=== PATIENT | male | born 1960 | race Caucasian/White ===

== ENCOUNTER 2017-05-15 17:23 | Inpatient (IN) | payer OTHER ==
[2017-05-15] VITALS (8 sets, daily range): BP systolic 139–170; BP diastolic 66–82; PULSE 80–104; RESP 16–20; TEMP 96.2–98.3; O2SAT 99–100
[~2017-05-15] VITALS: Ht 182.9 cm; Wt 132.0 kg
[2017-05-15] MEDS ORDERED: LISI10TA PO (17:53)
[2017-05-15] MEDS ORDERED: ASPI81CH37 CHEW (17:53)
[2017-05-15] MEDS ORDERED: SODIUM CHLOR 0.9% 1000 ML INJ 1,000 ML IV ONE (17:55)
--- NOTE | 2017-05-15 18:11 | RADRPT ---
EXAM DATE/TIME: 05/15/2017 18:01 [facility] COMPARISON: No previous studies available for comparison. INDICATIONS : Stroke alert, right sided facial numbness. RADIATION DOSE: 69.15 CTDIvol (mGy) This report was called by Dr. Ridley to Dr. Boucher at 6: 08 PM MEDICAL HISTORY : Hypertension. SURGICAL HISTORY : Cholecystectomy. ENCOUNTER: Initial ACUITY: 1 day PAIN SCALE: 0/10 LOCATION: Bilateral head TECHNIQUE: Multiple contiguous axial images were obtained of the head. Using automated exposure control and adj ustment of the mA and/or kV according to patient size, radiation dose was kept as low as reasonably a chievable to obtain optimal diagnostic quality images. DICOM format image data is available electro nically for review and comparison. FINDINGS: CEREBRUM: The ventricles are normal for age. No evidence of midline shift, mass lesion, hemorrhage or acute in farction. No extra-axial fluid collections are seen. POSTERIOR FOSSA: The cerebellum and brainstem are intact. The 4th ventricle is midline. The cerebellopontine angle i s unremarkable. EXTRACRANIAL: The visualized portion of the orbits is intact. SKULL: The calvaria is intact. No evidence of skull fracture. CONCLUSION: Normal examination. Jordan Ridley MD on May 15, 2017 at 18:07 Board Certified Radiologist. This report was verified electronically.
[2017-05-15 18:13] LABS: AUTOMATED NEUTROPHIL # 6.1 TH/MM3 (1.8-7.7); BASOPHIL # 0.1 TH/MM3 (0-0.2); BASOPHIL % 1.1 % (0.0-2.0); EOSINOPHIL # 0.2 TH/MM3 (0-0.4); EOSINOPHIL % 2.1 % (0.0-4.0); HEMATOCRIT 37.3 % (39.0-51.0); HEMO FLAGS DIFF FINAL; LYMPH % 23.7 % (9.0-44.0); LYMPHOCYTE # 2.2 TH/MM3 (1.0-4.8); MEAN CELL VOLUME 76.2 FL (80.0-100.0); MEAN CORPUSCULAR HEMOGLOBIN 24.4 PG (27.0-34.0); MONO % 8.9 % (0.0-8.0); NEUT % 64.2 % (16.0-70.0); PLATELET COUNT 378 TH/MM3 (150-450); RED BLOOD COUNT 4.89 MIL/MM3 (4.50-5.90); RED CELL DISTRIBUTION WIDTH 15.7 % (11.6-17.2); WHITE BLOOD COUNT 9.4 TH/MM3 (4.0-11.0)
[2017-05-15] MEDS ORDERED: IOHEXOL 350 MG/ML 10 ML VIAL (for RAD DIAG) IV ONE (18:18)
--- NOTE | 2017-05-15 18:18 | PD ---
HPI Chief Complaint: Neuro Symptoms/ Deficits Time Seen by Provider: 17:55 Travel History International Travel<30 days: No Contact w/Intl Traveler<30days: No Traveled to known affect area: No History of Present Illness HPI The patient is 56 years old and arrives due to right-sided facial numbness and weakness. Symptoms started suddenly at rest 2 hours and 56 minutes prior to ER triage. Onset sudden and his symptoms gradually progressed in a constant fashion precipitating his ER arrival by private auto. He denies any change in mentation or memory. He denies weakness in the extremities. 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 He denies any rash recently. He has had no headache. No new medication change in medication. Severity moderate. PFSH Past Medical History Hypertension: Yes Tetanus Vaccination: < 5 Years Influenza Vaccination: Yes ?: Not Past Surgical History Cholecystectomy: Yes Tonsillectomy: Yes Social History Alcohol Use: Yes Tobacco Use: No Substance Use: No Allergies-Medications (Allergen,Severity, Reaction): Coded Allergies: No Known Allergies (Unverified , 05/15/17) Reported Meds & Prescriptions Reported Meds & Active Scripts Active Reported Aspirin Low Dose (Aspirin) 81 Mg Chew 81 Mg CHEW DAILY Lisinopril-Hctz 10-12.5 Mg Tab 1 Tab PO DAILY Review of Systems Except as stated in HPI: all other systems reviewed are Neg Physical Exam Narrative GENERAL: 36-year-old male well-nourished well-developed no acute distress. SKIN: Focused skin assessment warm/dry. HEAD: Atraumatic. Normocephalic. EYES: Pupils equal and round. No scleral icterus. No injection or drainage. ENT: No nasal bleeding or discharge. Mucous membranes pink and moist. NECK: Trachea midline. No JVD. CARDIOVASCULAR: Regular rate and rhythm. No murmur appreciated. RESPIRATORY: No accessory muscle use. Clear to auscultation. Breath sounds equal bilaterally. GASTROINTESTINAL: Abdomen soft, non-tender, nondistended. Hepatic and splenic margins not palpable. MUSCULOSKELETAL: No obvious deformities. No clubbing. No cyanosis. No edema. NEUROLOGICAL: Awake and alert 3. Motor function of the upper or lower extremities is equal and symmetric 5 over 5. Cerebellar function is normal. Speech memory mentation normal. The patient's right eyebrow is slightly lower than the left eyebrow when both are maximally elevated. During conversation the patient does not completely close the right eye while blinking although close the left eye completely. He can forcefully close the right eye completely. There is a mild depression of the nasolabial fold on the right side and he cannot raise the right mouth while smiling. PSYCHIATRIC: Appropriate mood and affect; insight and judgment normal. Data Data Last Documented VS Vital Signs Date Time Temp Pulse Resp B/P Pulse Ox O2 Delivery O2 Flow Rate FiO2 05/15/17 18:36 104 18 157/80 100 Room Air 05/15/17 17:25 98.3 Vital signs reviewed Orders Diet Npo (05/15/17 Dinner) Activity Bed Rest (05/15/17 ) Electrocardiogram (05/15/17 ) I-Stat Creatinine (05/15/17 17:55) I-Stat Profile (05/15/17 17:55) Prothrombin Time / Inr (Pt) (05/15/17 17:55) Act Partial Throm Time (Ptt) (05/15/17 17:55) Complete Blood Count With Diff (05/15/17 17:55) Fibrinogen (05/15/17 17:55) Creatine Kinase (Cpk) (05/15/17 17:55) Troponin I (05/15/17 17:55) Ua Includes Microscopic (05/15/17 17:55) Drug Screen, Random Urine (05/15/17 17:55) Type And Screen (05/15/17 17:55) Ct Brain W/O Iv Contrast(Rout) (05/15/17 ) Cta Brain W Iv Contrast W 3d (05/15/17 17:55) Cta Neck W Iv Contrast W 3d (05/15/17 17:55) Consult Neurology (05/15/17 ) Blood Glucose (05/15/17 17:55) Ecg Monitoring (05/15/17 17:55) Neuro Checks Q2HX12,Q4H (05/15/17 17:55) Nursing Bedside Swallow Assess .ONCE (05/15/17 17:55) Iv Access Insert/Monitor (05/15/17 17:55) NPO (05/15/17 17:55) Oximetry (05/15/17 17:55) Oxygen Administration (05/15/17 17:55) Sodium Chlor 0.9% 1000 Ml Inj (Ns 1000 M (05/15/17 17:55) Resp Oxygen Tobias C Titrat 1-4 L (05/15/17 17:55) Cath For Specimen (05/15/17 17:55) (Hub Use Only)Inp Phy Cons/Ref (05/15/17 ) Iohexol 350 Inj (Omnipaque 350 Inj) (05/15/17 18:18) Admit Order (Ed Use Only) (05/15/17 18:45) Labs Laboratory Tests Test 05/15/17 18:00 White Blood Count 9.4 TH/MM3 Red Blood Count 4.89 MIL/MM3 Hemoglobin 11.9 GM/DL Bedside Hemoglobin 12.9 G/DL Hematocrit 37.3 % Bedside Hematocrit 38.0 % Mean Corpuscular Volume 76.2 FL Mean Corpuscular Hemoglobin 24.4 PG Mean Corpuscular Hemoglobin 32.0 % Concent Red Cell Distribution Width 15.7 % Platelet Count 378 TH/MM3 Mean Platelet Volume 7.6 FL Neutrophils (%) (Auto) 64.2 % Lymphocytes (%) (Auto) 23.7 % Monocytes (%) (Auto) 8.9 % Eosinophils (%) (Auto) 2.1 % Basophils (%) (Auto) 1.1 % Neutrophils # (Auto) 6.1 TH/MM3 Lymphocytes # (Auto) 2.2 TH/MM3 Monocytes # (Auto) 0.8 TH/MM3 Eosinophils # (Auto) 0.2 TH/MM3 Basophils # (Auto) 0.1 TH/MM3 CBC Comment DIFF FINAL Differential Comment Prothrombin Time 11.0 SEC Prothromb Time International 1.0 RATIO Ratio Activated Partial 29.9 SEC Thromboplast Time Fibrinogen 445 mg/dL Bedside Sodium 141 MMOL/L Bedside Potassium 4.1 MMOL/L Bedside Chloride 104 MMOL/L Bedside Blood Urea Nitrogen 8 MG/DL Bedside Creatinine 0.8 MG/DL Bedside Glucose 88 MG/DL Total Creatine Kinase 168 U/L Troponin I LESS THAN 0.02 NG/ML Blood Type O POSITIVE Antibody Screen NEGATIVE Blood Bank Comment [facility] Medical Screen Exam Complete: Yes Emergency Medical Condition: Yes Differential Diagnosis CVA, TIA, Catalan's Palsy Narrative Course CBC & BMP Diagram 05/15/17 18:00 [id number] electrolytes are normal The troponin is less than 0.02 Last 24 hours Impressions Head CTA 05/15/17 [id number] Signed Impressions: Service Date/Time: Monday, May 15, 2017 18:03 - CONCLUSION: No acute disease. Corbin Patino MD Head CT 05/15/17 0000 Signed Impressions: Service Date/Time: Monday, May 15, 2017 18:01 - CONCLUSION: Normal examination. Jordan Ridley MD The patient will be admitted for monitoring neurology evaluation and MR imaging. Stroke v Catalan's palsy. Pt very well informed and after long discussion he elected to defer Alteplase. We reviewed risks, benefits and alternatives in fairly specific detail and patient was provided with the [facility] patient information literature which we reviewed together with . d/w Dr Payne and Dr Lucia. Critical Care Narrative Aggregate critical care time was 40 minutes. Time to perform other separately billable procedures was not included in the critical care time. My time did not include minutes spent treating any other patients simultaneously or on activities that did not directly contribute to the patient's treatment. The services I provided to this patient were to treat and/or prevent clinically significant deterioration that could result in: Permanent neurologic deficit I provided critical care services requiring my management, as noted below: Chart data review, documentation time, medication orders and management, vital sign assessments/reviewing monitor data, ordering and reviewing lab tests, ordering and interpreting/reviewing x-rays and diagnostic studies, care of the patient and discussion of the patient with the admitting physicians. Critical care Stroke Alert NIHSS NIH Stroke Scale Result: 4 NIHSS Time Completed: 17:52 Thrombolytic Contraindications Contraindications: Refusal of Treatment Contraindications Comment: Long discussion with patient and patient ultimately refused Diagnosis Diagnosis: Primary Impression: Paralysis of the face Admitting Physician Requests: Observation Piter Boucher MD May 15, 2017 18:18
[2017-05-15 18:24] LABS: APTT (PATIENT) 29.9 SEC (24.3-30.1)
--- NOTE | 2017-05-15 18:28 | RADRPT ---
EXAM DATE/TIME: 05/15/2017 18:03 [facility] COMPARISON: CT BRAIN W/O CONTRAST, May 15, 2017, 18:01. INDICATIONS : Stroke alert, right sided facial numbness. IV CONTRAST: 99 cc Omnipaque 350 (iohexol) IV ; Cumulative dose for multiple exams. RADIATION DOSE: 16.82 CTDIvol (mGy) ; Combined studies MEDICAL HISTORY : Hypertension. SURGICAL HISTORY : Cholecystectomy. ENCOUNTER: Initial ACUITY: 1 day PAIN SCALE: 0/10 LOCATION: Bilateral head TECHNIQUE: Volumetric scanning was performed using a multi-row detector CT scanner. The data was post processed with a variety of visualization algorithms including full volume maximum intensity projection, multi -planar sliding thin slab reformation, curved planar reformation, and surface rendering techniques. Using automated exposure control and adjustment of the mA and/or kV according to patient size, radiat ion dose was kept as low as reasonably achievable to obtain optimal diagnostic quality images. DICO M format image data is available electronically for review and comparison. FINDINGS: There is excellent visualization of the major intracranial arteries out to the second-order branch ve ssels. There is no evidence for aneurysm, vessel truncation or stenosis, and no evidence for vascula r malformation. CONCLUSION: No acute disease. Corbin Patino MD on May 15, 2017 at 18:24 Board Certified Radiologist. This report was verified electronically.
[2017-05-15 18:32] LABS: I-STAT POTASSIUM 4.1 MMOL/L (3.5-4.9); I-STAT SODIUM 141 MMOL/L (138-146)
[2017-05-15 18:56] LABS: CREATINE KINASE 168 U/L (39-308)
--- NOTE | 2017-05-15 19:02 | RADRPT ---
EXAM DATE/TIME: 05/15/2017 18:03 [facility] COMPARISON: No previous studies available for comparison. INDICATIONS : Stroke alert, right sided facial numbness. IV CONTRAST: 99 cc Omnipaque 350 (iohexol) IV ; Cumulative dose for multiple exams. RADIATION DOSE: 16.82 CTDIvol (mGy) ; Combined studies MEDICAL HISTORY : Hypertension. SURGICAL HISTORY : Cholecystectomy. ENCOUNTER: Initial ACUITY: 1 day PAIN SCALE: 0/10 LOCATION: Bilateral neck Elevated flow velocities and ICA/CCA ratios have been found to correlate with increased degrees of vessel stenosis, calculated as percentage of diameter relative to a normal segment of distal ICA/CCA. TECHNIQUE: Volumetric scanning was performed using a multirow detector CT scanner. The data was post processed with a variety of visualization algorithms including full-volume maximum intensity projection, multip lanar sliding thin-slab reformation, curved-planar reformation, and surface-rendering techniques. Us ing automated exposure control and adjustment of the mA and/or kV according to patient size, radiatio n dose was kept as low as reasonably achievable to obtain optimal diagnostic quality images. DICOM f ormat image data is available electronically for review and comparison. FINDINGS: AORTIC ARCH: There is a three-vessel origin of the great vessels from the aorta. No evidence of ostial narrowing. RIGHT CAROTID: The common carotid artery is intact. The carotid bulb has a normal configuration without ulceration o r narrowing. The internal carotid artery lumen is smooth without stenosis. The external carotid wally ry is intact. LEFT CAROTID: The common carotid artery is intact. The carotid bulb has a normal configuration without ulceration or narrowing. The internal carotid artery lumen is smooth without stenosis. The external carotid ar lyndsey is intact. VERTEBRALS: The vertebral arteries have a symmetric diameter. No stenotic lesions are seen. CONCLUSION: No acute disease. Corbin Patino MD on May 15, 2017 at 18:56 Board Certified Radiologist. This report was verified electronically.
[2017-05-15 19:53] LABS: AMPHETAMINE, URINE NEG (NEG); BARBITURATES, URINE NEG (NEG); COCAINE, URINE NEG (NEG)
[2017-05-15 20:01] LABS: BLOOD, URINE NEG (NEG); GLUCOSE,URINE NEG (NEG); KETONE, URINE NEG (NEG); NITRITE,URINE NEG (NEG); URINE COLOR COLORLESS (YELLW/STRAW)
--- NOTE | 2017-05-15 20:02 | HHI.HP ---
[facility] Jama Richardson MD Admission Diagnosis R Facial Paralysis Diagnoses: (1) CVA (cerebral vascular accident) Diagnosis: Principal (2) HTN (hypertension) Diagnosis: Principal (3) Anemia Diagnosis: Principal Travel History International Travel<30 Days: No Contact w/Intl Traveler <30 Da: No Traveled to Known Affected Are: No History of Present Illness This is a 56-year-old male with a PMH of HTN who presented to the ER with right- sided facial droop starting earlier this afternoon. Per patient he started to "feel weird" while having lunch, w/ right-sided facial numbness. States he had sudden onset of right eye burning and difficulty closing his right eye. No complaints on the left. No weakness or motor dysfunction noted. Denies recent h/o viral infection in the last 1-2 months. No h/o Catalan's Palsy. On arrival, BP 170/82, HR 87, O2 sat 99% on RA, Afebrile. CBC unremarkable except for mild anemia, hemoglobin 11.9. Chemistry unremarkable. Troponin negative. INR 1.0. UA negative. Urine Drug Screen negative. CT Head with no acute findings. CTA Head/Neck negative. Dr. Lucia consulted by ER physician, recommendation for TPA however pt and declined. Symptoms persistent. now notes slurring of speech. Pt does report taking ASA daily. Review of Systems Except as stated in HPI: all other systems reviewed are Neg ROS: 14 point review of systems otherwise negative. Past Family Social History Past Medical History PMH: HTN Allergies: Coded Allergies: No Known Allergies (Unverified , 05/15/17) Family History PAST FAMILY HISTORY: Reviewed. No h/o DM or CAD Social History PAST SOCIAL HISTORY: Occasional alcohol. Negative for tobacco or drugs. Physical Exam Vital Signs Vital Signs Date Time Temp Pulse Resp B/P Pulse Ox O2 Delivery O2 Flow Rate FiO2 05/15/17 18:36 104 18 157/80 100 Room Air 05/15/17 18:09 99 Room Air 05/15/17 18:09 99 Room Air 05/15/17 18:06 84 20 143/72 99 Room Air 05/15/17 17:44 78 18 99 Room Air 05/15/17 17:40 80 20 141/77 99 05/15/17 17:25 98.3 87 16 170/82 99 Physical Exam PE: GENERAL: Middle-aged white male in no acute distress. at bedside. HEENT: PERRLA, EOMI. No scleral icterus or conjunctival pallor. Right-sided facial droop CARDIOVASCULAR: Regular rate and rhythm. No obvious murmurs to auscultation. No chest tenderness to palpation. RESPIRATORY: No obvious rhonchi or wheezing. Clear to auscultation. Breath sounds equal bilaterally. GASTROINTESTINAL: Abdomen soft, non-tender, nondistended. BS normal. MUSCULOSKELETAL: Extremities without clubbing, cyanosis, or edema. No obvious deformities. NEUROLOGICAL: Awake, alert and oriented x4. Right facial droop, unable to close right eye. Moving both upper and lower extremities spontaneously. Laboratory Laboratory Tests Test 05/15/17 05/15/17 18:00 18:50 White Blood Count 9.4 Red Blood Count 4.89 Hemoglobin 11.9 Bedside Hemoglobin 12.9 Hematocrit 37.3 Bedside Hematocrit 38.0 Mean Corpuscular Volume 76.2 Mean Corpuscular Hemoglobin 24.4 Mean Corpuscular Hemoglobin 32.0 Concent Red Cell Distribution Width 15.7 Platelet Count 378 Mean Platelet Volume 7.6 Neutrophils (%) (Auto) 64.2 Lymphocytes (%) (Auto) 23.7 Monocytes (%) (Auto) 8.9 Eosinophils (%) (Auto) 2.1 Basophils (%) (Auto) 1.1 Neutrophils # (Auto) 6.1 Lymphocytes # (Auto) 2.2 Monocytes # (Auto) 0.8 Eosinophils # (Auto) 0.2 Basophils # (Auto) 0.1 CBC Comment DIFF FINAL Differential Comment Prothrombin Time 11.0 Prothromb Time International 1.0 Ratio Activated Partial 29.9 Thromboplast Time Fibrinogen 445 Bedside Sodium 141 Bedside Potassium 4.1 Bedside Chloride 104 Bedside Blood Urea Nitrogen 8 Bedside Creatinine 0.8 Bedside Glucose 88 Total Creatine Kinase 168 Troponin I LESS THAN 0.02 Blood Type O POSITIVE Antibody Screen NEGATIVE Blood Bank Comment Urine Opiates Screen NEG Urine Barbiturates Screen NEG Urine Amphetamines Screen NEG Urine Benzodiazepines Screen NEG Urine Cocaine Screen NEG Urine Cannabinoids Screen NEG Result Diagram: 05/15/17 1800 Assessment and Plan Problem List: (1) CVA (cerebral vascular accident) ICD Code: I63.9 Status: Acute (2) HTN (hypertension) ICD Code: I10 Status: Acute (3) Anemia ICD Code: D64.9 Status: Acute Assessment and Plan A/P: 1. CVA: Acute onset of right-sided facial droop, now w/ mild slurred speech, no recent viral infection, no facial trauma/injury, concern for CVA. CT Head w / no acute findings, CTA Head/Neck negative, images reviewed by me. Dr. Lucia consulted by ER physician, recommendation for TPA however pt and declined. Will continue w/ ASA, check Hgb A1c, Lipid Profile. NPO, IVF, Speech Eval. HOB flat, permissive HTN, neuro checks. 2. HTN: BP170's on arrival, currently 140's systolic. Hold BP meds to allow for permissive HTN in light of possible CVA. 3. Anemia: Mild. Hgb 11.9, no previous labs for comparison. Will monitor, repeat labs in am. 4. DVT Prophylaxis: SCD/Teds. 5. Social work for d/c planning as needed. 6. Case discussed w/ ER physician at length Physician Certification 2 Midnight Certification Type: Admission for Inpatient Services Order for Inpatient Services The services are ordered in accordance with Medicare regulations or non- Medicare payer requirements, as applicable. In the case of services not specified as inpatient-only, they are appropriately provided as inpatient services in accordance with the 2-midnight benchmark. Estimated LOS (days): 2 days is the estimated time the patient will need to remain in the hospital, assuming treatment plan goals are met and no additional complications. Post-Hospital Plan: Not yet determined Niyah Rueda MD May 15, 2017 20:02
[2017-05-15] MEDS ORDERED: SODIUM CHLORIDE 0.9% FLUSH 10 ML FLUSH IV FLUSH PRN (20:15)
[2017-05-15] MEDS ORDERED: BISACODYL 10 MG SUPP RECTAL PRN (20:15)
[2017-05-15] MEDS ORDERED: SENNOSIDES 8.6 MG TAB PO PRN (20:15)
[2017-05-15] MEDS ORDERED: ONDANSETRON HCL 4 MG/2 ML VIAL IVP PRN (20:15)
[2017-05-15] MEDS ORDERED: GLUCAGON 1 MG/ML VIAL OTHER PRN (20:15)
[2017-05-15] MEDS ORDERED: LACTULOSE SYRUP 20 GM/30 ML CUP PO PRN (20:15)
[2017-05-15] MEDS ORDERED: MAGNESIUM HYDROXIDE SUSP 30 ML CUP PO PRN (20:15)
[2017-05-15] MEDS ORDERED: ENALAPRILAT 1.25 MG/ML VIAL IV PRN (20:15)
[2017-05-15] MEDS ORDERED: DEXTROSE 50% IN WATER 50 ML VIAL(D50) IV PUSH PRN (20:15)
[2017-05-15] MEDS ORDERED: MORPHINE SULFATE 4 MG/ML INJ IV PRN ×2 (20:15)
[2017-05-15] MEDS ORDERED: SODIUM CHLORIDE 0.9% FLUSH 5 ML FLUSH IV FLUSH PRN (20:15)
[2017-05-15] MEDS ORDERED: ACETAMINOPHEN 1000 MG/100 ML VIAL IV PRN (20:15)
[2017-05-15] MEDS: SODIUM CHLORIDE 0.9% FLUSH 5 ML FLUSH IV FLUSH SCH (20:50)
[2017-05-15] MEDS: DOCUSATE SODIUM 50 MG/SENNA 8.6 MG TAB PO SCH (20:52)
[2017-05-15] MEDS: INSULIN ASPART SUPPLEMENTAL SCALE SQ SCH (20:54)
[2017-05-15] MEDS: SODIUM CHLOR 0.9% 1000 ML INJ 1,000 ML IV SCH (20:57)
[2017-05-15] MEDS ORDERED: SODIUM CHLORIDE 0.9% FLUSH 10 ML FLUSH IV FLUSH SCH (21:00)
[2017-05-15] MEDS ORDERED: ARTIFICIAL TEARS OPTH SOLN 15 ML BTL RIGHT EYE PRN (22:15)
[2017-05-16 04:27] VITALS: BP 132/70; PULSE 75; RESP 20; TEMP 97.1; O2SAT 100
[2017-05-16] MEDS ORDERED: diphenhydrAMINE HCL 50 MG/ML VIAL IV PUSH ONE (05:00)
[2017-05-16] MEDS ORDERED: methylPREDNISolone SOD SUCC 125 MG/2 ML VIAL IV PUSH ONE (05:00)
[2017-05-16] MEDS ORDERED: diphenhydrAMINE HCL 50 MG CAP PO ONE (05:00)
[2017-05-16] MEDS: SODIUM CHLOR 0.9% 1000 ML INJ 1,000 ML IV SCH (05:17)
[2017-05-16] MEDS: INSULIN ASPART SUPPLEMENTAL SCALE SQ SCH ×2 (06:05→11:23)
[2017-05-16 08:00] VITALS: BP 124/65; PULSE 81; RESP 16; TEMP 98.5; O2SAT 94
[2017-05-16] MEDS ORDERED: ASPIRIN 300 MG SUPP RECTAL SCH (09:00)
[2017-05-16] MEDS: SODIUM CHLORIDE 0.9% FLUSH 5 ML FLUSH IV FLUSH SCH (09:00)
--- NOTE | 2017-05-16 09:09 | PD.CONS ---
History of Present Illness Service Neurology Consult Requested By er Reason for Consult stroke alert Primary Care Physician Jama Richardson MD History of Present Illness 56-year-old male with a PMH of HTN who presented to the ER with right-sided facial droop starting earlier this afternoon. States he had sudden onset of right eye burning and difficulty closing his right eye. No weakness or motor dysfunction noted. On arrival, BP 170/82, HR 87 CT Head with no acute findings. CTA Head/Neck negative. Pt does report taking ASA daily. no change in taste, or hearing or lacrimation. moderate stress from work. no head/neck trauma. no leslie, no fevers, no jaw claudication. no focal weakness. Review of Systems Except as stated in HPI: all other systems reviewed are Neg ROS: 14 point review of systems otherwise negative. Past Family Social History Past Medical History PMH: HTN Allergies: Coded Allergies: No Known Allergies (Unverified , 05/15/17) Family History PAST FAMILY HISTORY: Reviewed. No h/o DM or CAD Social History PAST SOCIAL HISTORY: Occasional alcohol. Negative for tobacco or drugs. Review of Systems All other ROS: ROS reviewed as documented in chart Past Family Social History Allergies: Coded Allergies: No Known Allergies (Unverified , 05/15/17) Active Ordered Medications Current Medications Medications (Trade) Dose Ordered Sig/Terrance Route Start Time Stop Time Status Last Admin (NS Flush) 2 ml BID IV FLUSH 05/15/17 21:00 (NS Flush) 2 ml UNSCH PRN IV FLUSH 05/15/17 20:15 (Vasotec Inj) 1.25 mg Q4H PRN IV 05/15/17 20:15 (Aspirin Supp) 300 mg DAILY RECTAL 05/16/17 09:00 (NovoLOG SUPPLEMENTAL SCALE) 1 ACHS SQ 05/15/17 21:00 (D50w (Vial) Inj) 50 ml UNSCH PRN IV PUSH 05/15/17 20:15 Glucagon 1 mg 1 mg UNSCH PRN OTHER 05/15/17 20:15 (NS 1000 ml Inj) 1,000 ml @ 100 mls/hr Q10H IV 05/15/17 20:06 05/16/17 05:17 (Zofran Inj) 4 mg Q6H PRN IVP 05/15/17 20:15 (Morphine Inj) 1 mg Q3H PRN IV 05/15/17 20:15 (Morphine Inj) 2 mg Q3H PRN IV 05/15/17 20:15 (Ofirmev Inj) 1,000 mg Q6H PRN IV 05/15/17 20:15 05/16/17 14:16 (Sharon-Colace) 1 tab BID PO 05/15/17 21:00 (Milk Of Magnesia Liq) 30 ml Q12H PRN PO 05/15/17 20:15 (Senokot) 17.2 mg Q12H PRN PO 05/15/17 20:15 (Dulcolax Supp) 10 mg DAILY PRN RECTAL 05/15/17 20:15 (Lactulose Liq) 30 ml DAILY PRN PO 05/15/17 20:15 (Tears Naturale Opth Soln) 1 drop Q4H PRN RIGHT EYE 05/15/17 22:15 Exam I&O / VS 05/15/17 05/15/17 05/16/17 14:59 22:59 06:59 Intake Total 1926 ml Output Total 700 ml Balance -700 ml 1926 ml Intake IV Total 1926 ml Output Urine Total 700 ml # Voids 1 Vital Signs Date Time Temp Pulse Resp B/P Pulse Ox O2 Delivery O2 Flow Rate FiO2 05/16/17 04:27 97.1 75 20 132/70 100 05/15/17 22:40 96.2 81 20 139/66 100 05/15/17 20:30 Room Air 05/15/17 20:29 85 20 150/76 100 Room Air 05/15/17 19:30 99 05/15/17 18:36 104 18 157/80 100 Room Air 05/15/17 18:09 99 Room Air 05/15/17 18:09 99 Room Air 05/15/17 18:06 84 20 143/72 99 Room Air 05/15/17 17:44 78 18 99 Room Air 05/15/17 17:40 80 20 141/77 99 05/15/17 17:25 98.3 87 16 170/82 99 General: Alert and Oriented Eye: Normal conjuctiva Respiratory: Non-labored respirations Cardiology: Normal rate Musculoskeletal: ROM Neurologic: Alert, Oriented, Normal sensory, Normal motor, Gag reflex normal, Normal DTR's Psychiatric: Cooperative, Appropriate mood & affect, Normal judgement, Non- suicidal Exam Comments ox 3, no aphasia, follows, fluent speech, eomi, mild left conjunctival erythema - thinks it was a reaction, eomi, vff, rt facial weakness 3/5 able to close rt eye but rt frontal and orbicularis oculi 3-4/5, orbicularis vincent 2-3/5, v1-v3 normal, tongue midline, motor 5/5, gait steady Review/Management Diagnosis/Plan: (1) Catalan palsy Plan: incomplete, 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 official report pending recs pred 60mg x 7 days, valtrex x 7 days bp control f/u with pcp f/u with us as needed in 4 weeks eye gtt's to rt eye for lubrication rt eye patch if weakness worsens d/c today (2) HTN (hypertension) Plan: per medical/outpatient pcp (3) Anemia Plan: tx per pcp Problem Qualifiers (1) HTN (hypertension): Qualified Code: I10 - Essential hypertension (2) Anemia: Qualified Code: D64.9 - Anemia, unspecified type Abdirahman Lucia MD May 16, 2017 09:09
[2017-05-16 09:27] LABS: AUTOMATED NEUTROPHIL # 7.3 TH/MM3 (1.8-7.7); BASOPHIL # 0.1 TH/MM3 (0-0.2); BASOPHIL % 0.7 % (0.0-2.0); EOSINOPHIL % 0.6 % (0.0-4.0); HEMATOCRIT 40.1 % (39.0-51.0); LYMPH % 11.8 % (9.0-44.0); MEAN CELL VOLUME 75.6 FL (80.0-100.0); MEAN CORPUSCULAR HEMOGLOBIN 24.9 PG (27.0-34.0); MEAN CORPUSCULAR HGB CONC 32.9 % (32.0-36.0); MONO % 0.8 % (0.0-8.0); NEUT % 86.1 % (16.0-70.0); PLATELET COUNT 376 TH/MM3 (150-450); RED BLOOD COUNT 5.31 MIL/MM3 (4.50-5.90); RED CELL DISTRIBUTION WIDTH 15.4 % (11.6-17.2); WHITE BLOOD COUNT 8.5 TH/MM3 (4.0-11.0)
[2017-05-16 09:36] LABS: HEMO FLAGS AUTO DIFF
--- NOTE | 2017-05-16 09:39 | RADRPT ---
EXAM DATE/TIME: 05/16/2017 09:10 [facility] COMPARISON: CT BRAIN W/O CONTRAST, May 15, 2017, 18:01. INDICATIONS : Stroke. Right facial droop. Slurred speech. MEDICAL HISTORY : Hypertension. SURGICAL HISTORY : Cholecystectomy. Tonsillectomy. ENCOUNTER: Initial ACUITY: 1 day PAIN SCORE: 0/10 LOCATION: cranial TECHNIQUE: Multiplanar, multisequence MRI of the brain was performed without contrast. FINDINGS: CEREBRUM: The ventricles are normal for age. No evidence of midline shift, mass lesion, hemorrhage or acute in farction. No extraaxial fluid collections are seen. The pituitary gland and suprasellar cistern are normal in configuration. WHITE MATTER: No significant signal abnormalities are seen in the white matter. POSTERIOR FOSSA: The cerebellum and brainstem are intact. The 4th ventricle is midline. The cerebellopontine angle is unremarkable. The cerebellar tonsils are normal in position. DIFFUSION IMAGING: No focal areas of restricted diffusion are seen. No evidence of acute infarction. EXTRACRANIAL: The visualized portions of the orbits and paranasal sinuses are unremarkable. CONCLUSION: Normal examination for a patient of this age. Patrick Zavaleta MD on May 16, 2017 at 9:35 Board Certified Radiologist. This report was verified electronically.
[2017-05-16 09:59] LABS: ANION GAP 8 MEQ/L (5-15); AST (GOT) 21 U/L (15-37); BICARBONATE 24.9 MEQ/L (21.0-32.0); BLOOD UREA NITROGEN 10 MG/DL (7-18); CHLORIDE 107 MEQ/L (98-107); GLOMERULAR FILTRATION RATE 82 ML/MIN (>89); POTASSIUM 4.3 MEQ/L (3.5-5.1); SODIUM (NA) 140 MEQ/L (136-145)
[2017-05-16 10:00] LABS: ALT (GPT) 23 U/L (12-78)
[2017-05-16] MEDS ORDERED: predniSONE 20 MG TAB PO SCH (10:00)
[2017-05-16 10:03] LABS: ALKALINE PHOSPHATASE 110 U/L (45-117); HDL CHOLESTEROL 41.8 MG/DL (40.0-60.0); LDL CHOLESTEROL 135 MG/DL (0-99); TOTAL BILIRUBIN ADULT 0.4 MG/DL (0.2-1.0)
[2017-05-16] MEDS: DOCUSATE SODIUM 50 MG/SENNA 8.6 MG TAB PO SCH (10:26)
[2017-05-16 10:37] LABS: OVALOCYTES 1+ (NORMAL); SCAN/DIFF AUTO DIFF CONFIRMED
[2017-05-16 10:46] VITALS: PULSE 72
[2017-05-16] MEDS ORDERED: valACYclovir HCL 500 MG TAB PO SCH (11:00)
[2017-05-16 11:04] VITALS: O2SAT 95
--- NOTE | 2017-05-16 11:49 | EKG ---
Date Performed: 05/15/2017 Time Performed: 18:31:08 PTAGE: 56 years EKG: Sinus rhythm MINIMAL ST DEPRESSION BORDERLINE ECG NO PREVIOUS TRACING DOCTOR: Miguel Benitez Interpretating Date/Time 05/16/2017 11:47:13
[2017-05-16 11:57] VITALS: BP 146/82; PULSE 85; RESP 17; TEMP 98.1; O2SAT 96
[2017-05-16] MEDS ORDERED: PRED20 PO (13:33)
[2017-05-16] MEDS ORDERED: VALT500T PO (13:33)
--- NOTE | 2017-05-16 14:03 | MH ---
cc: BERNADINE CHEUNG DATE OF ADMISSION: 05/15/2017 ADMITTING DIAGNOSIS: Right facial weakness, possible CVA. HISTORY OF PRESENT ILLNESS: Mr. Higginbotham is a 56-year-old white male with history of hypertension, hyperlipidemia, morbid obesity and gastroesophageal reflux disease who contacted the undersigned physician on the day of admission reporting that he had noticed a right-sided facial weakness and tingling sensation. He had no difficulty with use of the right hand or lower extremity. The patient had no aphasia. He denied any headaches, fever, chills, night sweats, nausea, vomiting, diarrhea, any chest pain, shortness of breath, palpitations, abdominal pain, cough, unexplained weight loss, unexplained weight gain, heat or cold intolerance, tremors, visual changes. The patient was instructed to report to the emergency department for further evaluation and treatment. PAST MEDICAL HISTORY: His past medical history significant for: 1. Hypertension. 2. Hyperlipidemia. 3. History of skin cancer. 4. History of asthma which is only occasionally symptomatic, usually with upper respiratory infections. 5. He has hemorrhoids. 6. Allergic rhinitis. MEDICATIONS: His current medications are: 1. Ferrous sulfate 325 milligrams daily. 2. Claritin 10 milligrams daily as needed. 3. Albuterol HFA inhaler two puffs three times a day as needed. 4. Lisinopril HCTZ 10/12.5 milligrams daily. ALLERGIES: HE HAS NO KNOWN DRUG ALLERGIES. PAST SURGICAL HISTORY: His surgical history is positive for: 1. Laparoscopic cholecystectomy in 2008. 2. He had a tonsillectomy in childhood. FAMILY HISTORY: His family history is positive for a father with stomach cancer, the mother had glaucoma and Alzheimer's. SOCIAL HISTORY: He is . He is a computer networker. He does not smoke, nor did he ever. He does not consume alcohol. PHYSICAL EXAMINATION: VITAL SIGNS: Upon arrival to the emergency room, his blood pressure was 170/82 with a heart rate of 87, respirations 16, temperature 98.3 degrees Fahrenheit, oxygen saturation on room air was 99%. At the current time, his blood pressure is 146/82 with a heart rate of 85, respirations 17, temperature 98.1 degrees Fahrenheit. GENERAL: In general this a morbidly obese middle-aged white male sitting in a chair in no acute distress. HEAD, EYES, EARS, NOSE, THROAT: There is a definite right-sided facial weakness but the patient is able to close his right eye completely. The pupils are equal round and reactive to light. Extraocular muscles intact. Sclerae anicteric. Conjunctivae were pink. Mouth and throat reveal moist mucous membranes. Dentition good. The left eye reveals a subconjunctival hemorrhage. NECK: Neck is supple without lymphadenopathy, JVD, bruits or thyromegaly. CARDIOVASCULAR: Regular rate and rhythm without murmurs, rubs or gallops. LUNGS: Clear to auscultation without wheezes, rhonchi or rales. ABDOMEN: Obese, soft, nontender, nondistended. Further palpation is not possible due to the patient's obesity. AND RECTAL: Deferred. EXTREMITIES: Lower extremities reveal no appreciable edema. No calf tenderness. No Homans' sign. 2+ distal pulses. SKIN: Warm and dry. NEUROLOGIC EXAMINATION: The patient is awake and alert, oriented x3. Speech is intact. Cranial nerves reveal the right facial weakness but otherwise intact. The strength in the upper and lower extremities is 5/5 and symmetric. Sensation to light touch is intact bilaterally in the upper and lower extremities. Gait was not tested. The patient has no memory deficits. No cognitive deficits. The mood is good. Affect appropriate. LABORATORY DATA: White blood cell count 9.4, hemoglobin 11.9, hematocrit 37.5, platelet count was 378,000. Repeat H&H this morning was 13.2 and 40.1, respectively which is within normal limits. The comprehensive metabolic profile was significant only for a random glucose of 140. The patients cholesterol levels revealed a total cholesterol 196, HDL 41.8, LDL 135. Triglycerides were 98. The troponin was less 0.02, CK 160. The urinalysis showed a specific gravity of 1.012, pH 7.0 and all the other indices were within normal limits. Urine drug screen negative. INR 1.0, APTT 29.9, fibrinogen 458 which was elevated. IMAGING STUDIES: CT scan of the head without contrast revealed normal examination. CTA of the neck revealed no acute disease with no carotid or vertebral stenosis noted. The CTA of the head revealed no evidence of aneurysm, vessel truncation or stenosis and no evidence of vascular malformation. MRI of the brain revealed normal examination for the patient's age. EKGS: EKG revealed sinus rhythm with a rate of 96 beats per minute, axis was normal at -7 degrees, no acute S-T or T-wave changes. No prior study for comparison. IMPRESSION AND PLAN: 1. Right facial weakness. The emergency room physician discussed the findings with Dr. Lucia who was neurology concrete pipe maker. He recommended t-PA but the patient and his refused. The patient was inadvertently admitted to the hospitalist service and not the undersigned physician who is his primary care physician. This morning I was notified of the patient's admission and I have assumed his care. I have reviewed the consultation by Dr. 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 He does not feel any further evaluation and treatment is needed other than to place the patient on Valacyclovir 1000 milligrams twice a day for seven days and Prednisone 60 milligrams daily for seven days. The patient has had serial neuro checks here in the hospital and has had no further progression of his neurologic deficits. He is eager to return home. I believe the patient is safe to be discharged home. Dr. Lucia has recommended discharge today as well. The patient will be provided with the balance of the prescription for valacyclovir and prednisone. 2. Hypertension. The patient will resume lisinopril. Blood pressure under adequate control at this time. 3. Hyperlipidemia. Will address on an outpatient basis. The patient has had Hydrea has a known diagnosis hyperlipidemia but has had difficulty tolerating statins in the past. Will address further at his outpatient followup visit 4. Left subconjunctival hemorrhage. I have reassured the patient this we will resolve on its own. The patient will be discharged home later today with close outpatient followup. MD BELIA Yanez/[id number] /1:18 PM /1:51 PM MTDDonald
[2017-05-17 15:47] LABS: HEMOGLOBIN A1a 1.3 %; HEMOGLOBIN Ao 84.1 %; HEMOGLOBIN LA1C 1.6 %; HEMOGLOBIN P3 3.7 %
== END 2017-05-16 14:17 | disposition home or self-care (01) | DRG 66 ==
LOC: NEPE 17:23 → NEDA 18:46 → OBSVTOIN 20:02 → N05A 21:57
PROVIDERS: ADMIT Family Medicine; ATTEND Family Medicine
DX: I63.9 Cerebral infarction, unspecified (principal); I10 Essential (primary) hypertension; G51.0 Bell's palsy; D64.9 Anemia, unspecified; E78.5 Hyperlipidemia, unspecified; J45.909 Unspecified asthma, uncomplicated; K21.9 Gastro-esophageal reflux disease without esophagitis; H11.32 Conjunctival hemorrhage, left eye; Z79.82 Long term (current) use of aspirin; Z85.828 Personal history of other malignant neoplasm of skin
CPT/HCPCS: 70450; 70496; 70498; 70551; 80053; 80061; 80307; 81001; 82435; 82550; 82565; 82947; 82948; 83036; 84132; 84295; 84484; 84520; 85025; 85384; 85610; 85730; 86850; 86900; 86901; 93005; J1200; J2930; J7030; J7512; Q9967